=== PATIENT | female | born 1995 | race Caucasian/White ===

== ENCOUNTER 2017-09-23 18:37 | Emergency (ER) | payer BC ==
[2017-09-23 18:58] VITALS: BP 109/64
[2017-09-23] MEDS ORDERED: DOXYcycline CAP(*) 100 MG PO ONE (19:23)
--- NOTE | 2017-09-23 19:25 | UC ---
UC General HPI - HPI Summary HPI Summary: pt c/o a 2 weeks hx sinsu congestion. now have pressure and yellow green drainage. used a decongestant with no relief. denies allergies. - History of Current Complaint Chief Complaint: UCRespiratory Stated Complaint: POSSIBLE SINUS INFECTION Time Seen by Provider: 09/23/17 19:19 Hx Obtained From: Patient Hx Last Menstrual Period: HAS NOT HAD A PERIOD IN 3 YEARS, SEEING A PATENTED [employer] Onset/Duration: Gradual Onset Timing: Constant Pain Intensity: 6 Aggravating: nothing Alleviating: nothing Associated Signs & Symptoms: Positive: Fever - Allergy/Home Medications Allergies/Adverse Reactions: Allergies Allergy/AdvReac Type Severity Reaction Status Date / Time Penicillins Allergy Unknown Unknown Verified 09/23/17 18:51 Reaction Details Home Medications: Home Medications D-Methorphan/PE/Acetaminophen [Cold Multi-Symptom Gelcap] 1 each PO PRN [History] PMH/Surg Hx/FS Hx/Imm Hx - Additional Past Medical History Additional PMH: amenorrhea x 3 years, sinusitis - Surgical History Surgical History: None - Family History Known Family History: Positive: None - Social History Occupation: Employed Full-time Lives: With Family Alcohol Use: Occasionally Substance Use Type: None Smoking Status (MU): Never Smoked Tobacco - Immunization History Vaccination Up to Date: Yes Review of Systems Constitutional: Fever, Chills Skin: Negative Eyes: Negative ENT: Nasal Discharge, Sinus Congestion, Sinus Pain/Tenderness Respiratory: Negative Cardiovascular: Negative Gastrointestinal: Negative Genitourinary: Negative Motor: Negative Neurovascular: Negative Musculoskeletal: Negative Neurological: Negative Psychological: Negative Is Patient Immunocompromised?: No All Other Systems Reviewed And Are Negative: Yes Physical Exam Triage Information Reviewed: Yes Appearance: Well-Appearing Vital Signs: Initial Vital Signs Temp 99.4 F 09/23/17 18:52 Pulse 93 09/23/17 18:52 Resp 16 09/23/17 18:52 BP 109/64 09/23/17 18:52 Pulse Ox 100 09/23/17 18:52 Eyes: Positive: Conjunctiva Clear ENT: Positive: Pharynx normal, Nasal drainage - yellow, TMs normal, Sinus tenderness Neck: Positive: Supple, Nontender, No Lymphadenopathy Respiratory: Positive: Lungs clear, Normal breath sounds Cardiovascular: Positive: RRR, No Murmur Abdomen Description: Positive: Nontender, No Organomegaly, Soft Bowel Sounds: Positive: Present Musculoskeletal: Positive: ROM Intact Neurological: Positive: Alert Psychological: Positive: Age Appropriate Behavior Skin Exam: Normal Course/Dx - Differential Dx - Multi-Symptom Provider Diagnoses: sinusitis Discharge - Sign-Out/Discharge Documenting (check all that apply): Discharge/Admit/Transfer - Discharge Plan Condition: Stable Disposition: HOME Prescriptions: DOXYcycline CAP(*) [DOXYcycline 100MG CAP(*)] 100 mg PO BID #[id number] cap Patient Education Materials: Sinusitis (ED) Referrals: [facility] [place] [facility] [place]Outside] Additional Instructions: call the physician referral monday, they will assist with finding a primary care doctor. recheck in 7-10 days. - Billing Disposition and Condition Condition: STABLE Disposition: HOME
== END 2017-09-23 19:35 | disposition home or self-care (01) ==
LOC: UCCORT 18:37
DX: J32.9 Chronic sinusitis, unspecified (principal); N91.2 Amenorrhea, unspecified; Z88.0 Allergy status to penicillin
CPT/HCPCS: 99202; A9270-GY; G0463